=== PATIENT | male | born 1990 | race Caucasian/White ===

== ENCOUNTER 2019-12-16 15:21 | Emergency (ER) | payer SELFPAY ==
--- NOTE | 2019-12-16 15:34 | EDM.PDOC ---
ED HPI GENERAL MEDICAL PROBLEM - General Chief Complaint: Genitourinary Problem Stated Complaint: PAIN IN LEFT SIDE FOR A WEEK Time Seen by Provider: 12/16/19 15:23 Source of Information: Reports: Patient History Limitations: Reports: No Limitations - History of Present Illness INITIAL COMMENTS - FREE TEXT/NARRATIVE: HISTORY AND PHYSICAL: History of present illness: Patient is a 29-year-old male who presents to the emergency room with complaints of left groin and testicular pain x1 week. He states he has had this dull throbbing ache in his groin and testicular area with tenderness to palpation over the past week. He states he does have some discomfort with urination and has noticed some penile drainage. Although the symptoms are suggestive for an STD he declines having any concerns of this. He denies any injury, trauma or falls. Patient denies any fever, chills, headache, change in vision, syncope or near syncope. Denies any chest pain, back pain, shortness of breath or cough. Denies any abdominal pain, nausea, vomiting, diarrhea, constipation or dysuria. Has not noted any blood in urine or stool. Patient has been eating and drinking appropriately. Review of systems: As per history of present illness and below otherwise all systems reviewed and negative. Past medical history: As per history of present illness and as reviewed below otherwise noncontributory. Surgical history: As per history of present illness and as reviewed below otherwise noncontributory. Social history: See social history for further information Family history: As per history of present illness and as reviewed below otherwise noncontributory. Physical exam: General: Well-developed and well-nourished 29-year-old male. Alert and oriented. Nontoxic-appearing and in no acute distress. HEENT: Atraumatic, normocephalic, pupils equal and reactive bilaterally, negative for conjunctival pallor or scleral icterus, mucous membranes moist, TMs normal bilaterally, throat clear, neck supple, nontender, trachea midline. No drooling or trismus noted. No meningeal signs. No hot potato voice noted. Lungs: Clear to auscultation, breath sounds equal bilaterally, chest nontender. Heart: S1S2, regular rate and rhythm without overt murmur Abdomen: Soft, nondistended, nontender. Negative for masses or hepatosplenomegaly. Negative for costovertebral tenderness. Pelvis: Stable nontender. Genitourinary: This was done with consent and a employment legal assistant at the bedside. Left testes is slightly swollen and tender to palpation. No hernias appreciated. No obvious lesions or sores noted to the genitalia. Skin: Intact, warm, dry. No lesions or rashes noted. Extremities: Atraumatic, moves all extremities per self without difficulty or deficits, negative for cords or calf pain. Neurovascular unremarkable. Neuro: Awake, alert, oriented. Cranial nerves II through XII unremarkable. Cerebellum unremarkable. Motor and sensory unremarkable throughout. Exam nonfocal. Notes: Ultrasound shows enlarged and hypervascular epididymitis on the left compatible with severe epididymitis. Possible mild left-sided orchitis noted also. Patient does have numerous RBCs in urine. STD screening was sent. We discussed the importance of taking his medications. Supportive care measures were reviewed and discussed. Voices understanding and is agreeable to plan of care. Denies any further questions or concerns at this time. Diagnostics: CBC, CMP, UA, gonorrhea/chlamydia, ultrasound Therapeutics: Rocephin 250mg x 1 IM Prescription: Doxycycline azithromycin Impression: STD screening Epididymitis UTI Plan: 1. Please abstain from sexual intercourse until the lab results have returned. Always use protection to minimized risk of STD exposure 2. Take the medications as directed. The gonorrhea and chlamydia tests are send out labs, therefore will not be available for 2-3 business days. 3. Please follow-up with your primary care provider in the next 1-2 days. [facility] does offer free STD testing, please follow-up with them for further STD testing needs. Return to the ED as needed and as discussed. Definitive disposition and diagnosis as appropriate pending reevaluation and review of above. Left Testicle Pain Score (Numeric/FACES): 6 - Related Data Allergies Allergy/AdvReac Type Severity Reaction Status Date / Time No Known Allergies Allergy Verified 12/16/19 16:31 Home Meds: Home Meds . [No Known Home Meds] 12/16/19 [History] ED ROS GENERAL - Review of Systems Review Of Systems: Comprehensive ROS is negative, except as noted in HPI. ED EXAM, RENAL/ - Physical Exam Exam: See Below (See dictation) Course - Vital Signs Last Recorded V/S: Last Vital Signs Temp 98.7 F 12/16/19 16:27 Pulse 106 H 12/16/19 16:27 Resp 18 12/16/19 16:27 BP 132/82 12/16/19 16:27 Pulse Ox 95 12/16/19 16:27 - Orders/Labs/Meds Orders: Active Orders 24 hr Category Date Time Status Scrotal Duplex Ltd [US] Stat Exams 12/16/19 15:53 Taken CHLAMYDIA AND GONORRHEA BY [facility] Stat Lab 12/16/19 16:35 Received CULTURE URINE [RM] Stat Lab 12/16/19 16:35 Received Labs: Laboratory Tests 12/16/19 12/16/19 12/16/19 Range/Units 15:44 15:44 16:35 WBC 13.78 H (4.0-11.0) K/uL RBC 4.28 L (4.50-5.90) M/uL Hgb 12.7 L (13.0-17.0) g/dL Hct 37.8 L (38.0-50.0) % MCV 88.3 (80.0-98.0) fL MCH 29.7 (27.0-32.0) pg MCHC 33.6 (31.0-37.0) g/dL RDW Std Deviation 42.9 (28.0-62.0) fl RDW Coeff of Shannon 13 (11.0-15.0) % Plt Count 569 H (150-400) K/uL MPV 9.10 (7.40-12.00) fL Neut % (Auto) 78.7 (48.0-80.0) % Lymph % (Auto) 11.2 L (16.0-40.0) % [place] % (Auto) 4.1 (0.0-15.0) % Eos % (Auto) 5.6 (0.0-7.0) % Baso % (Auto) 0.4 (0.0-1.5) % Neut # (Auto) 10.9 H (1.4-5.7) K/uL Lymph # (Auto) 1.5 (0.6-2.4) K/uL [place] # (Auto) 0.6 (0.0-0.8) K/uL Eos # (Auto) 0.8 H (0.0-0.7) K/uL Baso # (Auto) 0.1 (0.0-0.1) K/uL Nucleated RBC % 0.0 /100WBC Nucleated RBCs # 0 K/uL Sodium 139 (136-148) mmol/L Potassium 3.9 (3.5-5.1) mmol/L Chloride 101 (98-107) mmol/L Carbon Dioxide 28.2 (21.0-32.0) mmol/L BUN 14 (7.0-18.0) mg/dL Creatinine 0.8 (0.8-1.3) mg/dL Est Cr Clr Drug Dosing TNP Estimated GFR (MDRD) > 60.0 ml/min Glucose 88 (74-106) mg/dL Calcium 9.0 (8.5-10.1) mg/dL Total Bilirubin 0.2 (0.2-1.0) mg/dL AST 27 (15-37) IU/L ALT 49 (14-63) IU/L Alkaline Phosphatase 125 H (46-116) U/L Total Protein 8.1 (6.4-8.2) g/dL Albumin 2.9 L (3.4-5.0) g/dL Globulin 5.2 H (2.6-4.0) g/dL Albumin/Globulin Ratio 0.6 L (0.9-1.6) Urine Color YELLOW Urine Appearance SLT CLOUDY Urine pH 6.5 (5.0-8.0) Ur Specific [place] 1.010 (1.001-1.035) Urine Protein NEGATIVE (NEGATIVE) mg/dL Urine Glucose (UA) NEGATIVE (NEGATIVE) mg/dL Urine Ketones NEGATIVE (NEGATIVE) mg/dL Urine Occult Blood TRACE-INTACT H (NEGATIVE) Urine Nitrite NEGATIVE (NEGATIVE) Urine Bilirubin NEGATIVE (NEGATIVE) Urine Urobilinogen 0.2 (<2.0) EU/dL Ur Leukocyte Esterase LARGE H (NEGATIVE) Urine RBC 2-4 (0-2/HPF) Urine WBC TO NUMEROUS TO COUNT H (0-5/HPF) Ur Epithelial Cells FEW (NONE-FEW) Urine Bacteria FEW (NEGATIVE) Urine Mucus LIGHT (NONE-MOD) Meds: Medications Discontinued Medications Generic Name Dose Route Start Last Admin Trade Name Freq PRN Reason Stop Dose Admin Ceftriaxone Sodium 250 mg/ 1 mls @ 1 mls/sec 12/16/19 16:44 Lidocaine HCl IM 12/16/19 16:45 ONETIME ONE Lidocaine HCl 2 ml 12/16/19 16:44 Xylocaine-Mpf 1% INJECT 12/16/19 16:45 ONETIME ONE Departure - Departure Time of Disposition: 17:20 Disposition: Home, Self-Care 01 Clinical Impression: UTI, Urinary tract infectious disease, Epididymitis, Screening for STD ( sexually transmitted disease) - Discharge Information Referrals: PCP,None [Primary Care Provider] - Forms: ED Department Discharge Additional Instructions: The following information is given to patients seen in the emergency department who are being discharged to home. This information is to outline your options for follow-up care. We provide all patients seen in our emergency department with a follow-up referral. The need for follow-up, as well as the timing and circumstances, are variable depending upon the specifics of your emergency department visit. If you don't have a primary care physician on staff, we will provide you with a referral. We always advise you to contact your personal physician following an emergency department visit to inform them of the circumstance of the visit and for follow-up with them and/or the need for any referrals to a consulting specialist. The emergency department will also refer you to a specialist when appropriate. This referral assures that you have the opportunity for follow-up care with a specialist. All of these measure are taken in an effort to provide you with optimal care, which includes your follow-up. Under all circumstances we always encourage you to contact your private physician who remains a resource for coordinating your care. When calling for follow-up care, please make the office aware that this follow-up is from your recent emergency room visit. If for any reason you are refused follow-up, please contact the [facility] Emergency Department at and asked to speak to the emergency department charge nurse. [facility] [address] [place] [address] [id number] [id number] 1. Please abstain from sexual intercourse until the lab results have returned. Always use protection to minimized risk of STD exposure 2. Take the medications as directed. The gonorrhea and chlamydia tests are send out labs, therefore will not be available for 2-3 business days. 3. Please follow-up with your primary care provider in the next 1-2 days. [facility] does offer free STD testing, please follow-up with them for further STD testing needs. Return to the ED as needed and as discussed. Sepsis Event Note - Focused Exam Vital Signs: Vital Signs Temp Pulse Resp BP Pulse Ox 12/16/19 16:27 98.7 F 106 H 18 132/82 95 Date Exam was Performed: 12/16/19 Time Exam was Performed: 17:20 - My Orders Last 24 Hours: My Active Orders 12/16/19 16:35 CHLAMYDIA AND GONORRHEA BY [facility] Stat CULTURE URINE [RM] Stat - Assessment/Plan Last 24 Hours: My Active Orders 12/16/19 16:35 CHLAMYDIA AND GONORRHEA BY [facility] Stat CULTURE URINE [RM] Stat
[2019-12-16 16:15] LABS: BLOOD UREA NITROGEN,BUN 14 mg/dL (7.0-18.0); CARBON DIOXIDE,CO2 28.2 mmol/L (21.0-32.0); CHLORIDE,CL 101 mmol/L (98-107); GLUCOSE RANDOM 88 mg/dL (74-106); POTASSIUM,K 3.9 mmol/L (3.5-5.1); SODIUM,NA 139 mmol/L (136-148)
[2019-12-16] MEDS ORDERED: Lidocaine 1% PF 2 ML SDV INJECT ONE (16:44)
[2019-12-16] MEDS ORDERED: cefTRIAXone 250 MG in Lidocaine 1% 1 ML IM ONE (16:44)
--- NOTE | 2019-12-17 14:29 | US ---
Testicular ultrasound: Multiple real-time images of the testicles were obtained. Enlarged hypervascular epididymis noted on the left side. Findings are felt compatible with rather prominent epididymitis. Slight increased vascularity is seen within a portion of the left testicle. Right epididymis appears unremarkable. Both arterial and venous blood flow are seen within the testicles. No hydrocele is seen on either side. Impression: 1. Enlarged and hypervascular epididymis on the left side compatible with fairly severe epididymitis. Possible mild left-sided orchitis also noted. Diagnostic code #3 This report was dictated in [place] Standard Time MTDD
== END 2019-12-16 17:50 | disposition home or self-care (01) ==
LOC: MW.ED 15:21
DX: N39.0 Urinary tract infection, site not specified (principal); N45.1 Epididymitis; Z11.3 Encounter for screening for infections with a predominantly sexual mode of transmission
CPT/HCPCS: 36415; 76870; 80053; 81001; 85025; 87086; 87491; 87591; 93976; 96372; 99284; J0696; J2001

== ENCOUNTER 2025-03-23 10:41 | Inpatient (IN) | payer SELFPAY ==
[2025-03-23] MEDS: Orphenadrine 60 MG/2 ML Inj IM ONE (11:17)
[2025-03-23] MEDS: Ketorolac 60 MG/2 ML SDV IM ONE (11:17)
[2025-03-23] MEDS ORDERED: Sodium Chloride 0.9% 10 ML Syringe FLUSH PRN (12:09)
[2025-03-23] MEDS ORDERED: Sodium Chloride 0.9% 2.5 ML Syringe FLUSH PRN (12:09)
[2025-03-23] MEDS ORDERED: Ondansetron 4 MG/2 ML SDV IVPUSH PRN (13:07)
[2025-03-23] MEDS ORDERED: Ketorolac 30 MG/ML SDV IM PRN (13:07)
[2025-03-23] MEDS ORDERED: Polyethylene Glycol 3350 Powder 17 GM Packet PO PRN (13:09)
[2025-03-23] MEDS ORDERED: Docusate Sodium 100 MG Cap PO PRN (13:09)
[2025-03-23 13:13] LABS: BASOPHILS ABSOLUTE AUTO 0.05 K/uL (0.00-0.20); BASOPHILS PERCENT AUTO 0.9 % (0.0-1.0); EOSINOPHILS ABSOLUTE AUTO 0.12 K/uL (0.00-0.45); EOSINOPHILS PERCENT AUTO 2.1 % (0.0-6.0); HEMATOCRIT 41.9 % (42.0-52.0); HEMOGLOBIN 14.5 g/dL (14.0-18.0); IMMATURE GRAN ABSOLUTE AUTO 0.01 K/uL (0.00-0.05); IMMATURE GRAN PERCENT AUTO 0.2 % (0.0-0.4); LYMPHOCYTES ABSOLUTE AUTO 1.47 K/uL (1.00-4.80); LYMPHOCYTES PERCENT AUTO 25.7 % (24.0-44.0); MEAN CORPUSCULAR HEMOGLOBIN 32.7 pg (28.0-32.0); MEAN CORPUSCULAR HGB CONC 34.6 g/dL (32.0-36.0); MEAN CORPUSCULAR VOLUME 94.6 fL (83.0-99.0); MEAN PLATELET VOLUME 10.3 fL (9.4-12.4); MONOCYTES ABSOLUTE AUTO 0.52 K/uL (0.00-0.80); MONOCYTES PERCENT AUTO 9.1 % (0.0-8.0); NEUTROPHILS ABSOLUTE AUTO 3.54 K/uL (1.80-7.70); PLATELET COUNT,PLT 237 K/uL (150-400); RED BLOOD CELL COUNT 4.43 M/uL (4.52-5.90); WHITE BLOOD CELL COUNT,WBC 5.71 K/uL (3.9-11.3)
[2025-03-23] MEDS ORDERED: LORazepam 2 MG/ML SDV IVPUSH PRN (13:16)
[2025-03-23] MEDS ORDERED: Acetaminophen 325 MG Tab PO PRN (13:19)
[2025-03-23 13:58] LABS: ALBUMIN 3.5 g/dL (3.4-5.0); BILIRUBIN TOTAL 0.3 mg/dL (0.2-1.0); CALCIUM 9.1 mg/dL (8.5-10.1); EST CRCL DRUG DOSING (CG) 110.86 mL/min; PROTEIN TOTAL,TP 6.9 g/dL (6.4-8.2)
[2025-03-23 13:59] LABS: MAGNESIUM 2.2 mg/dL (1.8-2.4); PHOSPHORUS 4.3 mg/dL (2.6-4.7)
[2025-03-23] MEDS ORDERED: Morphine 2 MG/ML SYRINGE IVPUSH PRN (15:35)
[2025-03-23] MEDS ORDERED: Naloxone 0.4 MG/ML SDV IVPUSH PRN (15:36)
[2025-03-23] MEDS: Nicotine 7 MG/24 Hr Patch TRDERM SCH (20:59)
[2025-03-23] MEDS: Folic Acid 1 MG Tab PO SCH (21:12)
[2025-03-23] MEDS: Thiamine 100 MG Tab PO SCH (21:12)
[2025-03-24 05:48] LABS: BASOPHILS ABSOLUTE AUTO 0.03 K/uL (0.00-0.20); BASOPHILS PERCENT AUTO 0.7 % (0.0-1.0); EOSINOPHILS ABSOLUTE AUTO 0.14 K/uL (0.00-0.45); EOSINOPHILS PERCENT AUTO 3.5 % (0.0-6.0); HEMATOCRIT 38.8 % (42.0-52.0); HEMOGLOBIN 13.3 g/dL (14.0-18.0); IMMATURE GRAN ABSOLUTE AUTO 0.01 K/uL (0.00-0.05); IMMATURE GRAN PERCENT AUTO 0.2 % (0.0-0.4); LYMPHOCYTES ABSOLUTE AUTO 1.55 K/uL (1.00-4.80); LYMPHOCYTES PERCENT AUTO 38.7 % (24.0-44.0); MEAN CORPUSCULAR HEMOGLOBIN 32.4 pg (28.0-32.0); MEAN CORPUSCULAR HGB CONC 34.3 g/dL (32.0-36.0); MEAN CORPUSCULAR VOLUME 94.6 fL (83.0-99.0); MEAN PLATELET VOLUME 10.7 fL (9.4-12.4); MONOCYTES ABSOLUTE AUTO 0.42 K/uL (0.00-0.80); MONOCYTES PERCENT AUTO 10.5 % (0.0-8.0); NEUTROPHILS ABSOLUTE AUTO 1.86 K/uL (1.80-7.70); NEUTROPHILS PERCENT AUTO 46.4 % (41.0-71.0); PLATELET COUNT,PLT 206 K/uL (150-400); WHITE BLOOD CELL COUNT,WBC 4.01 K/uL (3.9-11.3)
[2025-03-24] MEDS ORDERED: Albuterol 0.083% 2.5 MG/3 ML Neb Soln NEB PRN (06:07)
[2025-03-24] MEDS ORDERED: Naloxone 0.4 MG/ML SDV IVPUSH PRN (06:07)
[2025-03-24] MEDS ORDERED: Phenylephrine HCl In 0.9% NaCl 1 MG/10 ML Syringe IVPUSH PRN (06:07)
[2025-03-24] MEDS ORDERED: Metoclopramide 10 MG/2 ML SDV IVPUSH PRN (06:07)
[2025-03-24] MEDS ORDERED: fentaNYL 50 MCG/ML SDV IVPUSH PRN (06:07)
[2025-03-24] MEDS ORDERED: Ondansetron 4 MG/2 ML SDV IVPUSH PRN ×2 (06:07→07:47)
[2025-03-24] MEDS ORDERED: Morphine 2 MG/ML SYRINGE IVPUSH PRN (06:07)
[2025-03-24] MEDS ORDERED: Ropivacaine 0.5% 5 MG/ML 30 ML SDV ONE (06:11)
[2025-03-24] MEDS ORDERED: Lidocaine 2% 5 ML SDV ONE ×2 (06:11→06:38)
[2025-03-24] MEDS ORDERED: Sodium Chloride 0.9% 20 ML ONE (06:13)
[2025-03-24] MEDS ORDERED: dexmedeTOMIDine HCl 200 MCG/2 ML SDV ONE (06:13)
[2025-03-24] MEDS ORDERED: Midazolam 1 MG/ML 2 ML SDV ONE (06:14)
[2025-03-24 06:15] LABS: BILIRUBIN TOTAL 0.3 mg/dL (0.2-1.0); CALCIUM 8.3 mg/dL (8.5-10.1); CARBON DIOXIDE,CO2 29.9 mmol/L (21.0-32.0); CREATININE 1.1 mg/dL (0.8-1.3); EST CRCL DRUG DOSING (CG) 100.78 mL/min; PROTEIN TOTAL,TP 6.1 g/dL (6.4-8.2)
[2025-03-24] MEDS ORDERED: Ondansetron 4 MG/2 ML SDV ONE (06:25)
[2025-03-24] MEDS ORDERED: Rocuronium Bromide 50 MG/5 ML Syringe ONE (06:26)
[2025-03-24] MEDS ORDERED: propofoL 1,000 MG/100 ML 100 ML ONE (06:26)
[2025-03-24] MEDS ORDERED: Dexamethasone 4 MG/ML 5 ML MDV ONE (06:29)
[2025-03-24] MEDS ORDERED: ceFAZolin 2 GM Vial ONE (06:37)
[2025-03-24] MEDS ORDERED: Bupivacaine 0.5% 30 ML SDV ONE (06:54)
[2025-03-24] MEDS ORDERED: Sugammadex Sodium 200 MG/2 ML VIAL IV ONE (07:13)
[2025-03-24] MEDS ORDERED: Ketorolac 30 MG/ML SDV ONE (07:13)
[2025-03-24] MEDS ORDERED: Acetaminophen/HYDROcodone 325-5 MG Tab PO PRN (07:47)
[2025-03-24] MEDS ORDERED: diphenhydrAMINE 25 MG Cap PO PRN (07:47)
[2025-03-24] MEDS ORDERED: fentaNYL 100 MCG/2 ML SDV ONE (07:56)
[2025-03-24] MEDS ORDERED: Ketorolac 30 MG/ML SDV IVPUSH SCH (08:00)
[2025-03-24] MEDS: HYDROmorphone 1 MG/ML Syringe IVPUSH PRN (08:36)
[2025-03-24] MEDS: Acetaminophen 325 MG Tab PO SCH (09:34)
[2025-03-24] MEDS: Ketorolac 30 MG/ML SDV IVPUSH SCH (11:22)
[2025-03-24] MEDS: ceFAZolin 2 GM in Water For Injection, Sterile 20 ML IVPUSH ONE (14:29)
[2025-03-24] MEDS ORDERED: Aspirin 325 MG Tab PO SCH (19:00)
== END 2025-03-24 15:15 | disposition home or self-care (01) | DRG 482 ==
LOC: MW.ED 10:41 → MW.MS 12:44
PROVIDERS: ADMIT Internal Medicine; ATTEND Internal Medicine
PROC: 0QS634Z Reposition Right Upper Femur with Internal Fixation Device, Percutaneous Approach (ICD-10-PCS; principal; 2025-03-23)
DX: S72.001A Fracture of unspecified part of neck of right femur, initial encounter for closed fracture (principal); F10.90 Alcohol use, unspecified, uncomplicated; Z79.82 Long term (current) use of aspirin; Z79.899 Other long term (current) drug therapy
CPT/HCPCS: 36415; 73502-26-RT; 73502-RT; 73700-26-RT; 73700-RT; 76000; 80053; 83735; 84100; 85025; 85610; 96372; 97161-GP; 97530-GP; 99284; 99285; A9270-GY; J0665; J0690; J1100; J1171; J1885; J2003; J2250; J2360; J2405; J2704; J2795; J3010; J3490